=== PATIENT | male | born 1990 | race Caucasian/White ===

== ENCOUNTER → 2017-03-11 | Emergency (ER) | payer OTHER ==
[~2017-03-11] VITALS: Ht 177.8 cm; Wt 79.8 kg
[~2017-03-11] MED LIST: TYLE325T5 PO
--- NOTE | 2017-03-11 12:31 | REP ---
Pain after trauma with attention to the first digit. PRIORS: None. FINDINGS: The joint spaces are symmetric and relatively well maintained. There is no evidence of acute fracture or destructive osseous lesion. IMPRESSION: Negative. Signed by Lj Hopkins DO 03/11/2017 02:09 P
[2017-03-11 12:39] VITALS: BP 143/83
== END | disposition home or self-care (01) ==
LOC: M ED 11:40
DX: L60.8 Other nail disorders (principal); Z88.1 Allergy status to other antibiotic agents

== ENCOUNTER → 2017-04-28 | Outpatient (REF) | payer OTHER ==
[2017-04-28 14:24] LABS: PROGRESSIVE MOTILITY (a) 11 % (>=32)
[2017-04-28 14:25] LABS: % NORMAL FORMS 4 % (>=4); IMMOTILITY 67 %; NON PROGRESSIVE MOTILITY (c) 22 %; TOTAL FUNCTIONAL 0.2 M/Ejac.; TOTAL MOTILITY 33 % (>=40); TOTAL PROGRESSIVE SPERM 1.6 M/Ejac.
== END ==
LOC: M LAB REF 13:08
PROVIDERS: ATTEND Obstetrics & Gynecology
DX: N46.9 Male infertility, unspecified (principal)

== ENCOUNTER → 2017-05-15 | Outpatient (REF) | payer OTHER ==
[2017-05-15 14:15] LABS: % NORMAL FORMS 10 % (>=4); IMMOTILITY 40 %; NON PROGRESSIVE MOTILITY (c) 19 %; PROGRESSIVE MOTILITY (a) 41 % (>=32); SPERM# 41.8 M/Ejac (33-46); TOTAL FUNCTIONAL 3.9 M/Ejac.; TOTAL MOTILITY 60 % (>=40); TOTAL PROGRESSIVE SPERM 17.2 M/Ejac.
== END ==
LOC: M LAB REF 12:47
PROVIDERS: ATTEND Obstetrics & Gynecology
DX: N46.9 Male infertility, unspecified (principal)